=== PATIENT | female | born 1935 | race Hispanic/Latino ===

== ENCOUNTER → 2017-07-02 | Outpatient (CLI) | payer OTHER ==
[~2017-07-02] MED LIST: AMLO10TA2 PO; CITA40TA6 PO; METO25TA6 PO; PRAV40TA3 PO; RAMI5CAP21 PO; RANI150T7 PO; RIVA20TA PO; TAMO20TA4 PO
== END | disposition home or self-care (01) ==
LOC: SHCH 16:10
PROVIDERS: ATTEND Internal Medicine Cardiovascular Disease
DX: I10 Essential (primary) hypertension (principal); R09.89 Other specified symptoms and signs involving the circulatory and respiratory systems
CPT/HCPCS: 93880

== ENCOUNTER 2018-04-14 09:27 | Inpatient (IN) | payer OTHER ==
[~2018-04-14] VITALS: Ht 157.5 cm; Wt 71.9 kg
[~2018-04-14 09:27] MED LIST changes: -AMLO10TA2 PO; +AMLO10TA6 PO; -RAMI5CAP21 PO; +RAMI5CAP66 PO
[2018-04-14] MEDS ORDERED: IPRATROPIUM/ALBUTEROL SULFATE 3 ML SOLUTION IH ONE (09:45)
[2018-04-14 10:03] LABS: CREATININE 1.5 mg/dL (0.5-1.5); POTASSIUM 5.1 mmol/L (3.5-5.1)
[2018-04-14 10:10] LABS: ALBUMIN 3.6 g/dL (3.5-5.0); BILIRUBIN,TOTAL 0.6 mg/dL (0.2-1.0); TOTAL PROTEIN, SERUM 7.3 g/dL (6.0-8.3)
[2018-04-14 10:28] LABS: BASOPHILS % (AUTO) 0.3 % (0.0-5.0); HEMATOCRIT 36.7 % (36-48); LYMPHOCYTES % (AUTO) 24.4 % (21.0-51.0); MEAN CORPUSCULAR HGB CONC 32.3 g/dL (32.0-36.0); MONOCYTES % (AUTO) 4.6 % (3.0-13.0); NEUTROPHILS % (AUTO) 68.7 % (40.0-77.0); PLATELET COUNT (AUTO) 149 K/uL (130-400); RED BLOOD CELL COUNT(AUTO) 3.95 MIL/uL (4.00-5.50); RED CELL DISTRIBUTION WIDTH 15.2 % (11.0-15.5); WHITE BLOOD COUNT (AUTO) 10.3 K/uL (4.8-10.8)
[2018-04-14 10:59] LABS: B-TYPE NATRIURETIC PEPTIDE 502 pg/mL (0-100)
[2018-04-14] MEDS ORDERED: AZITHROMYCIN 250 MG TABLET PO ONE (13:14)
[2018-04-14] MEDS ORDERED: FUROSEMIDE 10 MG/ML 2ML VIAL ONE (13:14)
[2018-04-14] MEDS ORDERED: LEVOFLOXACIN 500 MG TABLET ONE (13:15)
[2018-04-14 13:57] LABS: BILIRUBIN,URINE Negative (NEGATIVE); COLOR,URINE Yellow (YELLOW); GLUCOSE, URINE (UA) Negative (NEGATIVE); KETONES,URINE Negative (NEGATIVE); LEUKOCYTE ESTERASE ,URINE Small (NEGATIVE); NITRATE,URINE Negative (NEGATIVE); OCCULT BLOOD,URINE Negative (NEGATIVE); PROTEIN,URINE Trace (NEGATIVE); UROBILINOGEN,URINE 0.2 mg/dL (0.2-1.0)
[2018-04-14 14:09] LABS: APPEARANCE,URINE CLEAR (CLEAR)
[2018-04-14] MEDS ORDERED: SODIUM CHLORIDE 0.9% 1000ML 1,000 ML IV SCH (14:17)
[2018-04-14 14:28] LABS: AMORPHOUS SEDIMENT,UR Rare /LPF (None Seen); BACTERIA,URINE Few /HPF (None Seen); COARSE GRANULAR CASTS,URINE 0-2 /LPF (None Seen); RBC,URINE 0-1 /HPF (0-1); SQUAMOUS EPITHELIAL CELL,UR Few /HPF (0-2)
[2018-04-14] MEDS ORDERED: ACETAMINOPHEN 325 MG TAB PO PRN (14:30)
[2018-04-14] MEDS ORDERED: MORPHINE SULFATE 2 MG/ML 1ML SYG IV PRN (14:30)
[2018-04-14] MEDS ORDERED: METOPROLOL TARTRATE 1 MG/ML 5ML VIAL IV PRN (14:30)
[2018-04-14] MEDS: FUROSEMIDE 10 MG/ML 2ML VIAL IV SCH ×2 (14:45→17:48)
[2018-04-14] MEDS ORDERED: IPRATROPIUM/ALBUTEROL SULFATE 3 ML SOLUTION IH PRN (14:45)
[2018-04-14] MEDS ORDERED: DEXTROSE 50%-WATER 50 ML DISP.SYRIN IV PRN (15:15)
[2018-04-14] MEDS ORDERED: GLUCAGON 1MG KIT 1 MG ML IM PRN (15:15)
[2018-04-14 16:00] VITALS: BP 137/77
[2018-04-14] MEDS ORDERED: RIVA20TA PO (16:23)
[2018-04-14] MEDS ORDERED: GLIP5TAB11 PO (16:23)
[2018-04-14] MEDS ORDERED: ALLO100T PO (16:23)
[2018-04-14] MEDS ORDERED: LEVO25TA54 PO (16:23)
[2018-04-14] MEDS: INSULIN HUMULIN R 100 UNIT/ML 3ML SQ SCH ×2 (16:30→21:00)
[2018-04-14] MEDS: PROPAFENONE HCL 150 MG TABLET PO SCH (17:46)
[2018-04-14] MEDS: METOPROLOL TARTRATE 1 MG/ML 5ML VIAL IV SCH (17:50)
[2018-04-14 19:13] VITALS: BP 138/83
[2018-04-14] MEDS: ATORVASTATIN CALCIUM 10 MG TABLET PO SCH (20:28)
[2018-04-14] MEDS: METOPROLOL TARTRATE 50 MG TAB PO SCH (20:28)
[2018-04-14] MEDS ORDERED: FAMOTIDINE 20MG TAB 20 MG TAB PO SCH (21:00)
[2018-04-14] MEDS ORDERED: METOPROLOL TARTRATE 25 MG TAB PO SCH ×2 (21:00)
[2018-04-14 23:13] VITALS: BP 119/67
[2018-04-15] VITALS (11 sets, daily range): BP systolic 97–144; BP diastolic 42–79
[2018-04-15] MEDS: FUROSEMIDE 10 MG/ML 2ML VIAL IV SCH ×2 (01:21→05:21)
[2018-04-15] MEDS: PROPAFENONE HCL 150 MG TABLET PO SCH ×3 (01:21→21:41)
[2018-04-15 04:24] LABS: MEAN CORPUSCULAR HEMOGLOBIN 31.2 pg (27.0-33.0); MEAN CORPUSCULAR HGB CONC 33.6 g/dL (32.0-36.0); MEAN CORPUSCULAR VOLUME 92.7 fL (79-99); PLATELET COUNT (AUTO) 142 K/uL (130-400); RED BLOOD CELL COUNT(AUTO) 3.56 MIL/uL (4.00-5.50); RED CELL DISTRIBUTION WIDTH 15.1 % (11.0-15.5); WHITE BLOOD COUNT (AUTO) 9.6 K/uL (4.8-10.8)
[2018-04-15 04:33] LABS: BILIRUBIN,TOTAL 0.5 mg/dL (0.2-1.0); CREATININE 1.9 mg/dL (0.5-1.5); MAGNESIUM 1.8 mg/dL (1.80-2.40); POTASSIUM 4.1 mmol/L (3.5-5.1); TOTAL PROTEIN, SERUM 6.3 g/dL (6.0-8.3)
[2018-04-15 04:43] LABS: B-TYPE NATRIURETIC PEPTIDE 469 pg/mL (0-100)
[2018-04-15] MEDS ORDERED: MIDAZOLAM HCL 1 MG/ML 2ML VIAL IVP ONE (07:00)
[2018-04-15] MEDS ORDERED: FENTANYL CITRATE PF 50 MCG/1 ML 2ML VIAL IVP ONE (07:00)
[2018-04-15] MEDS: GLIPIZIDE 5 MG TABLET PO SCH (07:30)
[2018-04-15] MEDS ORDERED: LEVOTHYROXINE 25 MCG TABLET PO SCH (07:30)
[2018-04-15] MEDS: INSULIN HUMULIN R 100 UNIT/ML 3ML SQ SCH ×4 (07:30→21:00)
[2018-04-15] MEDS ORDERED: SODIUM CHLORIDE 0.9% 1000ML 1,000 ML IV ONE (07:31)
[2018-04-15] MEDS ORDERED: LEVOFLOXACIN 500 MG/D5W 100 ML 100 ML IV SCH ×2 (08:15→08:45)
[2018-04-15] MEDS ORDERED: AZITHROMYCIN 500MG+NS 250ML 250 ML IV SCH (08:15)
[2018-04-15] MEDS ORDERED: ENOXAPARIN SODIUM 30 MG/0.3 ML SQ SCH (09:00)
[2018-04-15] MEDS ORDERED: RIVAROXABAN 20 MG TABLET PO SCH (09:00)
[2018-04-15] MEDS ORDERED: LISINOPRIL 10 MG TABLET PO SCH (09:00)
[2018-04-15] MEDS: METOPROLOL TARTRATE 50 MG TAB PO SCH ×2 (12:39→21:40)
[2018-04-15] MEDS: FAMOTIDINE 20MG TAB 20 MG TAB PO SCH (12:39)
[2018-04-15] MEDS: ALLOPURINOL 100 MG TABLET PO SCH (12:39)
[2018-04-15] MEDS: TAMOXIFEN CITRATE 10 MG TABLET PO SCH (12:40)
[2018-04-15] MEDS: METOPROLOL TARTRATE 1 MG/ML 5ML VIAL IV SCH (16:04)
[2018-04-15] MEDS: DOXYCYCLINE HYCLATE 100 MG TABLET PO SCH (21:40)
[2018-04-15] MEDS: ATORVASTATIN CALCIUM 10 MG TABLET PO SCH (21:40)
[2018-04-16 03:43] VITALS: BP 124/71
[2018-04-16 04:18] LABS: BASOPHILS % (AUTO) 0.3 % (0.0-5.0); HEMATOCRIT 32.5 % (36-48); LYMPHOCYTES % (AUTO) 22.7 % (21.0-51.0); MEAN CORPUSCULAR HEMOGLOBIN 30.6 pg (27.0-33.0); MEAN CORPUSCULAR HGB CONC 32.9 g/dL (32.0-36.0); MEAN CORPUSCULAR VOLUME 92.9 fL (79-99); MONOCYTES % (AUTO) 8.1 % (3.0-13.0); NEUTROPHILS % (AUTO) 66.9 % (40.0-77.0); NUCLEATED RED BLOOD CELLS 0.1 % (0.0-0.19); PLATELET COUNT (AUTO) 122 K/uL (130-400); RED CELL DISTRIBUTION WIDTH 15.2 % (11.0-15.5); WHITE BLOOD COUNT (AUTO) 9.2 K/uL (4.8-10.8)
[2018-04-16 04:18] LABS: ABG BASE EXCESS 0.6 mmol/L (-2.0-3.0); ABG HCO3 26.5 mmol/L (21.0-28.0); ABG OXYGEN SATURATION 96.2 % (95.0-99.0); ABG PCO2 47 mmHg (32-45)
[2018-04-16 04:47] LABS: B-TYPE NATRIURETIC PEPTIDE 137 pg/mL (0-100)
[2018-04-16 04:48] LABS: CREATININE 2.7 mg/dL (0.5-1.5); MAGNESIUM 1.9 mg/dL (1.80-2.40); POTASSIUM 4.2 mmol/L (3.5-5.1); THYROID STIMULATING HORMONE 2.19 uIU/mL (0.36-3.74)
[2018-04-16] MEDS: LEVOTHYROXINE 25 MCG TABLET PO SCH (05:55)
[2018-04-16] MEDS: PROPAFENONE HCL 150 MG TABLET PO SCH ×3 (05:56→21:34)
[2018-04-16] MEDS: INSULIN HUMULIN R 100 UNIT/ML 3ML SQ SCH ×4 (06:44→21:00)
[2018-04-16 07:09] VITALS: BP 121/57
[2018-04-16] MEDS: GLIPIZIDE 5 MG TABLET PO SCH (07:12)
[2018-04-16] MEDS: METOPROLOL TARTRATE 50 MG TAB PO SCH ×3 (08:26→21:33)
[2018-04-16] MEDS ORDERED: SODIUM CHLORIDE 0.9% 1000ML 1,000 ML IV SCH (08:30)
[2018-04-16] MEDS ORDERED: RIVAROXABAN 15 MG TABLET PO SCH (09:00)
[2018-04-16] MEDS: TAMOXIFEN CITRATE 10 MG TABLET PO SCH (09:54)
[2018-04-16] MEDS: DOXYCYCLINE HYCLATE 100 MG TABLET PO SCH ×2 (09:54→21:33)
[2018-04-16] MEDS: FAMOTIDINE 20MG TAB 20 MG TAB PO SCH (09:54)
[2018-04-16] MEDS: ALLOPURINOL 100 MG TABLET PO SCH (09:54)
[2018-04-16 11:05] VITALS: BP 127/59
[2018-04-16 16:04] VITALS: BP 140/73
[2018-04-16 19:28] VITALS: BP 132/66
[2018-04-16] MEDS: ATORVASTATIN CALCIUM 10 MG TABLET PO SCH (21:33)
[2018-04-16] MEDS: BENZONATATE 100 MG CAPSULE PO SCH (21:38)
[2018-04-16 23:17] VITALS: BP 120/65
[2018-04-17] VITALS (7 sets, daily range): BP systolic 90–171; BP diastolic 43–76
[2018-04-17 04:12] LABS: CREATININE 2.3 mg/dL (0.5-1.5); POTASSIUM 4.1 mmol/L (3.5-5.1)
[2018-04-17] MEDS: PROPAFENONE HCL 150 MG TABLET PO SCH ×3 (04:25→20:26)
[2018-04-17] MEDS: BENZONATATE 100 MG CAPSULE PO SCH ×3 (04:25→20:26)
[2018-04-17] MEDS: LEVOTHYROXINE 25 MCG TABLET PO SCH (06:38)
[2018-04-17] MEDS: GLIPIZIDE 5 MG TABLET PO SCH (06:39)
[2018-04-17] MEDS: INSULIN HUMULIN R 100 UNIT/ML 3ML SQ SCH ×4 (07:13→20:26)
[2018-04-17] MEDS ORDERED: LEVOFLOXACIN 250 MG/D5W 50ML 50 ML IVPB SCH (09:00)
[2018-04-17] MEDS: FUROSEMIDE 10 MG/ML 2ML VIAL IV SCH (09:27)
[2018-04-17] MEDS: TAMOXIFEN CITRATE 10 MG TABLET PO SCH (09:30)
[2018-04-17] MEDS: METOPROLOL TARTRATE 50 MG TAB PO SCH ×2 (09:31→20:26)
[2018-04-17] MEDS: AMLODIPINE BESYLATE 5 MG TAB PO SCH (09:31)
[2018-04-17] MEDS: DOXYCYCLINE HYCLATE 100 MG TABLET PO SCH ×2 (09:31→20:25)
[2018-04-17] MEDS: FAMOTIDINE 20MG TAB 20 MG TAB PO SCH (09:32)
[2018-04-17] MEDS: ALLOPURINOL 100 MG TABLET PO SCH (09:32)
[2018-04-17] MEDS: RIVAROXABAN 15 MG TABLET PO SCH (09:35)
[2018-04-17] MEDS: ATORVASTATIN CALCIUM 10 MG TABLET PO SCH (20:26)
[2018-04-18] MEDS: BENZONATATE 100 MG CAPSULE PO SCH ×2 (03:26→11:30)
[2018-04-18] MEDS: PROPAFENONE HCL 150 MG TABLET PO SCH (03:26)
[2018-04-18 03:36] LABS: MEAN CORPUSCULAR HEMOGLOBIN 29.9 pg (27.0-33.0); MEAN CORPUSCULAR HGB CONC 32.5 g/dL (32.0-36.0); MEAN CORPUSCULAR VOLUME 92.1 fL (79-99); NUCLEATED RED BLOOD CELLS 0.1 % (0.0-0.19); PLATELET COUNT (AUTO) 138 K/uL (130-400); RED BLOOD CELL COUNT(AUTO) 3.91 MIL/uL (4.00-5.50); RED CELL DISTRIBUTION WIDTH 15.4 % (11.0-15.5)
[2018-04-18 03:49] LABS: CREATININE 1.8 mg/dL (0.5-1.5); MAGNESIUM 1.9 mg/dL (1.80-2.40)
[2018-04-18 03:56] VITALS: BP 129/91
[2018-04-18] MEDS: LEVOTHYROXINE 25 MCG TABLET PO SCH (05:33)
[2018-04-18] MEDS: INSULIN HUMULIN R 100 UNIT/ML 3ML SQ SCH ×3 (05:33→16:30)
[2018-04-18 07:43] VITALS: BP 139/81
[2018-04-18] MEDS ORDERED: PROP325C5 PO (08:14)
[2018-04-18] MEDS ORDERED: RIVA15TA PO (08:14)
[2018-04-18] MEDS ORDERED: METO50TA18 PO (08:14)
[2018-04-18] MEDS ORDERED: FURO20TA4 PO (08:14)
[2018-04-18] MEDS ORDERED: FUROSEMIDE 20 MG TABLET PO SCH (09:00)
[2018-04-18] MEDS: FAMOTIDINE 20MG TAB 20 MG TAB PO SCH (09:54)
[2018-04-18] MEDS: DOXYCYCLINE HYCLATE 100 MG TABLET PO SCH (09:54)
[2018-04-18] MEDS: FUROSEMIDE 10 MG/ML 2ML VIAL IV SCH (09:54)
[2018-04-18] MEDS: RIVAROXABAN 15 MG TABLET PO SCH (09:54)
[2018-04-18] MEDS: METOPROLOL TARTRATE 50 MG TAB PO SCH (09:54)
[2018-04-18] MEDS: AMLODIPINE BESYLATE 5 MG TAB PO SCH (09:54)
[2018-04-18] MEDS: ALLOPURINOL 100 MG TABLET PO SCH (09:54)
[2018-04-18] MEDS: TAMOXIFEN CITRATE 10 MG TABLET PO SCH (09:56)
[2018-04-18 11:28] VITALS: BP 138/75
[2018-04-18] MEDS ORDERED: PROPAFENONE HCL 150 MG TABLET PO SCH (13:00)
[2018-04-18 16:11] VITALS: BP 126/67
== END 2018-04-18 18:00 | disposition home or self-care (01) | DRG 291 ==
LOC: EDH 09:27 → 2AH 14:17 → OBSVTOIN 14:17
PROVIDERS: ADMIT Hospitalist; ATTEND Hospitalist
PROC: 5A2204Z Restoration of Cardiac Rhythm, Single (ICD-10-PCS; principal; 2018-04-15)
DX: I13.0 Hypertensive heart and chronic kidney disease with heart failure and stage 1 through stage 4 chronic kidney disease, or unspecified chronic kidney disease (principal); I50.33 Acute on chronic diastolic (congestive) heart failure; N17.9 Acute kidney failure, unspecified; E46 Unspecified protein-calorie malnutrition; I48.0 Paroxysmal atrial fibrillation; E11.22 Type 2 diabetes mellitus with diabetic chronic kidney disease; F41.9 Anxiety disorder, unspecified; E03.9 Hypothyroidism, unspecified; E66.9 Obesity, unspecified; E78.5 Hyperlipidemia, unspecified; E86.9 Volume depletion, unspecified; J84.10 Pulmonary fibrosis, unspecified; K29.70 Gastritis, unspecified, without bleeding; N18.3 Chronic kidney disease, stage 3 (moderate); Z68.29 Body mass index [BMI] 29.0-29.9, adult; Z79.01 Long term (current) use of anticoagulants; Z79.810 Long term (current) use of selective estrogen receptor modulators (SERMs); Z85.3 Personal history of malignant neoplasm of breast; Z87.891 Personal history of nicotine dependence; Z92.21 Personal history of antineoplastic chemotherapy; Z92.3 Personal history of irradiation
CPT/HCPCS: 36415; 36600; 71045; 71046; 71250; 76770; 80048; 80053; 81001; 82550; 82803; 82948; 83735; 83880; 84100; 84443; 84484; 85025; 85027; 87040; 87804; 92960; 93005; 93306; 94640; 94664; 94760; G0378; J1940; J2250; J3010; J3490; J7030

== ENCOUNTER 2018-06-11 07:02 | Day surgery (SDC) | payer OTHER ==
[2018-06-10 14:40] VITALS: BP 114/58
[2018-06-10 15:00] LABS: BASOPHILS % (AUTO) 0.6 % (0.0-5.0); EOSINOPHILS % (AUTO) 2.7 % (0.0-8.0); HEMATOCRIT 33.8 % (36-48); LYMPHOCYTES % (AUTO) 15.8 % (21.0-51.0); MEAN CORPUSCULAR HEMOGLOBIN 29.3 pg (27.0-33.0); MEAN CORPUSCULAR HGB CONC 32.3 g/dL (32.0-36.0); MEAN CORPUSCULAR VOLUME 90.7 fL (79-99); NEUTROPHILS % (AUTO) 73.9 % (40.0-77.0); PLATELET COUNT (AUTO) 167 K/uL (130-400); RED BLOOD CELL COUNT(AUTO) 3.73 MIL/uL (4.00-5.50); RED CELL DISTRIBUTION WIDTH 15.9 % (11.0-15.5); WHITE BLOOD COUNT (AUTO) 8.8 K/uL (4.8-10.8)
[2018-06-10 15:13] LABS: CREATININE 1.7 mg/dL (0.5-1.5); POTASSIUM 4.6 mmol/L (3.5-5.1)
[2018-06-10 15:18] LABS: INR 1.12 (0.85-1.15); PARTIAL THROMBOPLASTIN TIME 28.3 SEC (26.3-35.5); PROTHROMBIN TIME 11.7 SEC (9.6-11.6)
--- NOTE | 2018-06-10 16:14 | NUR ---
LABS SPOKE TO DR. LOAN WILCOX'S ASST. IN REGARDS TO ABNORMAL BUN/CREA. PER DR. CATES, NO NEW ORDERS. PROCEED WITH PLANNED PROCEDURE.
[2018-06-11] VITALS (18 sets, daily range): BP systolic 70–167; BP diastolic 33–91
[~2018-06-11] VITALS: Ht 152.4 cm; Wt 76.9 kg
[~2018-06-11 07:02] MED LIST changes: +ALLO100T PO; -AMLO10TA6 PO; +FURO40TA5 PO; +GLIP5TAB11 PO; +LEVO25TA54 PO; +POTA-79 PO; +PROP150T28 PO; -RAMI5CAP66 PO; +RIVA15TA PO; -RIVA20TA PO
[2018-06-11] MEDS ORDERED: PROPOFOL 10 MG/ML 20ML VIAL IV ONE (07:32)
[2018-06-11] MEDS ORDERED: PHENYLEPHRINE HCL 10 MG/ML 1ML VIAL IV ONE (07:33)
[2018-06-11] MEDS ORDERED: GLYCOPYRROLATE 1 MG/5 ML SYRINGE ONE (07:37)
[2018-06-11] MEDS ORDERED: SUCCINYLCHOLINE CHLORIDE 20 MG/ML 10 ML VIAL ONE (07:54)
[2018-06-11] MEDS ORDERED: SODIUM CHLORIDE 0.9% 1000ML 1,000 ML IV SCH (08:00)
[2018-06-11] MEDS ORDERED: METO25TA6 PO (09:41)
--- NOTE | 2018-06-11 10:36 | NUR ---
PT TOLERATED PROCEDURE WELL, NO C/O OF CHEST PAIN NO DISTRESS. PT ABLE TO TOLERATE FLUIDS AT BEDSIDE SITTING UP. DAUGHTER ASSISTED PT TO GET DRESSED AFTER SITTING UP. DISCHARGE INSTRUCTIONS GIVEN TO PT AND IN [place] AND [place], BOTH VERBALIZED UNDERSTANDING. INSTRUCTION PT TO TAKE METOPROLOL MEDICATION OF 50MG (2 TABS) TWICE DAILY FOR TOTAL OF 100MG DAILY PER DR. CATES'S INSTRUCTION. PT STATED SHE UNDERSTOOD INSTRUCTION ON MEDICATION DOSAGE. PT PLACED IN WHEELCHAIR AND DRIVEN HOME BY FAMILY.
--- NOTE | 2018-06-11 10:51 | NUR ---
CARDIOVERSION: BASELINE TIME: 907 IN ROOM TIME: 814 START TIME: 915 SEDATION PUSH/ MEDICATION -DR. Brigido MIRANDA PT STABLE, VITALS STABLE SHOCK X1 DELIVERED AT TIME :917 200 JOULES PT CONVERTED, PT STABLE VITALS STABLE RECOVERY TIME : 919 PT RECOVERING, RESTING NO SIGNS OF DISTRESS, STABLE CONTINUE TO MONITOR PT. DR. CATES OUT OF ROOM TIME: 934 DR. Brigido MIRANDA OUT OF ROOM TIME: 934
== END 2018-06-11 10:36 | disposition home or self-care (01) ==
LOC: DAH 07:02
PROVIDERS: ATTEND Internal Medicine Cardiovascular Disease
DX: I48.1 Persistent atrial fibrillation (principal); Z79.01 Long term (current) use of anticoagulants; I10 Essential (primary) hypertension; E11.9 Type 2 diabetes mellitus without complications; E03.9 Hypothyroidism, unspecified; Z85.3 Personal history of malignant neoplasm of breast; Z98.890 Other specified postprocedural states; I25.10 Atherosclerotic heart disease of native coronary artery without angina pectoris; Z68.32 Body mass index [BMI] 32.0-32.9, adult
CPT/HCPCS: 36415; 80048; 82948; 85025; 85610; 85730; 92960; 93005; J0330; J2370; J2704; J3490; J7030

== ENCOUNTER → 2018-07-29 | Outpatient (CLI) | payer OTHER ==
[~2018-07-29] VITALS: Ht 147.3 cm; Wt 73.8 kg
[~2018-07-29] MED LIST changes: +DRON400T2 PO; +METO100T14 PO; -PROP150T28 PO
[2018-07-29 15:30] VITALS: BP 119/52
[2018-07-29 15:34] LABS: BASOPHILS % (AUTO) 0.3 % (0.0-5.0); EOSINOPHILS % (AUTO) 0.3 % (0.0-8.0); MEAN CORPUSCULAR HGB CONC 32.8 g/dL (32.0-36.0); MEAN CORPUSCULAR VOLUME 85.4 fL (79-99); MONOCYTES % (AUTO) 6.1 % (3.0-13.0); NEUTROPHILS % (AUTO) 85.3 % (40.0-77.0); NUCLEATED RED BLOOD CELLS 0.1 % (0.0-0.19); PLATELET COUNT (AUTO) 167 K/uL (130-400); RED BLOOD CELL COUNT(AUTO) 4.33 MIL/uL (4.00-5.50); RED CELL DISTRIBUTION WIDTH 17.2 % (11.0-15.5); WHITE BLOOD COUNT (AUTO) 14.9 K/uL (4.8-10.8)
[2018-07-29 15:45] LABS: CREATININE 1.6 mg/dL (0.5-1.5); POTASSIUM 4.8 mmol/L (3.5-5.1)
[2018-07-29 15:48] LABS: INR 1.14 (0.85-1.15); PARTIAL THROMBOPLASTIN TIME 28.3 SEC (26.3-35.5); PROTHROMBIN TIME 11.9 SEC (9.6-11.6)
--- NOTE | 2018-07-29 16:08 | NUR ---
ADMINSTRATION OF MULTAQ PER PATIENT AND SPOUSE PATIENT WAS PLACED ON AN ANTIBIOTIC ON 07/23 FOR 4 DAYS BY HER PCP FOR STOMACH INFECTION AND WAS ADVISED NOT TO TAKE MULTAQ ALONG WITH IT AND NOT TO TAKE IT UNTIL SHE SAW DR. CATES. PATIENT HAS BEEN OFF MULTAQ SINCE. 07/23. SPOKE TO DR. LOAN WILCOX'S NURSE OF PATIENT NOT BEING ON MULTAQ. PER [facility]ENDEN PATIENT'S PROCEDURE WILL BE CANCELLED AND THEIR OFFICE WILL CALL PATIENT FOR FURTHER INSTRUCTIONS. PATIENT AND SPOUSE VERBALIZED UNDERSTANDING.
== END ==
LOC: DAH 10:00 → EDSTATUS 07-31 11:00
PROVIDERS: ATTEND Internal Medicine Cardiovascular Disease
DX: Z01.818 Encounter for other preprocedural examination (principal); I48.0 Paroxysmal atrial fibrillation; Z79.01 Long term (current) use of anticoagulants; I10 Essential (primary) hypertension; E11.9 Type 2 diabetes mellitus without complications; E03.9 Hypothyroidism, unspecified; Z85.3 Personal history of malignant neoplasm of breast; Z68.31 Body mass index [BMI] 31.0-31.9, adult
CPT/HCPCS: 36415; 80048; 85025; 85610; 85730

== ENCOUNTER 2018-08-06 07:37 | Inpatient (IN) | payer OTHER | END 2018-08-09 19:32 | disposition home or self-care (01) | LOC: EDH 07:37 → EDHIP 15:40 → 2DH 20:53 | PROC: 5A2204Z Restoration of Cardiac Rhythm, Single (ICD-10-PCS; principal; ~2018-08-06) | DX: I50.41 Acute combined systolic (congestive) and diastolic (congestive) heart failure (principal); J96.01 Acute respiratory failure with hypoxia; N18.4 Chronic kidney disease, stage 4 (severe); I13.0 Hypertensive heart and chronic kidney disease with heart failure and stage 1 through stage 4 chronic kidney disease, or unspecified chronic kidney disease; I48.0 Paroxysmal atrial fibrillation; E11.22 Type 2 diabetes mellitus with diabetic chronic kidney disease ==

== ENCOUNTER 2018-11-07 03:13 | Inpatient (IN) | payer OTHER ==
[~2018-11-07] VITALS: Ht 157.5 cm; Wt 72.3 kg
[~2018-11-07 03:13] MED LIST changes: +AMIO200T5 PO; -DRON400T2 PO; -FURO40TA5 PO; -METO100T14 PO; -METO25TA6 PO; -POTA-79 PO
[2018-11-07] MEDS ORDERED: ALBUTEROL SULFATE 0.083% 2.5 MG/3 ML INH IH ONE (03:27)
[2018-11-07 03:31] LABS: BASOPHILS % (AUTO) 0.5 % (0.0-5.0); EOSINOPHILS % (AUTO) 2.3 % (0.0-8.0); HEMATOCRIT 31.3 % (36-48); LYMPHOCYTES % (AUTO) 20.3 % (21.0-51.0); MEAN CORPUSCULAR HEMOGLOBIN 27.1 pg (27.0-33.0); MEAN CORPUSCULAR HGB CONC 32.1 g/dL (32.0-36.0); MEAN CORPUSCULAR VOLUME 84.3 fL (79-99); NEUTROPHILS % (AUTO) 71.9 % (40.0-77.0); PLATELET COUNT (AUTO) 135 K/uL (130-400); RED BLOOD CELL COUNT(AUTO) 3.71 MIL/uL (4.00-5.50); RED CELL DISTRIBUTION WIDTH 18.3 % (11.0-15.5); WHITE BLOOD COUNT (AUTO) 11.6 K/uL (4.8-10.8)
[2018-11-07 03:35] LABS: ABG HCO3 23.4 mmol/L (21.0-28.0); ABG OXYGEN SATURATION 94.3 % (95.0-99.0); ABG PCO2 42 mmHg (32-45)
[2018-11-07 03:41] LABS: CREATININE 1.7 mg/dL (0.5-1.5); POTASSIUM 4.1 mmol/L (3.5-5.1)
[2018-11-07 03:43] LABS: INR 1.36 (0.85-1.15); PARTIAL THROMBOPLASTIN TIME 30.5 SEC (26.3-35.5); PROTHROMBIN TIME 14.2 SEC (9.6-11.6)
[2018-11-07 03:45] LABS: ALBUMIN 3.2 g/dL (3.5-5.0); BILIRUBIN,TOTAL 0.3 mg/dL (0.2-1.0)
[2018-11-07 03:58] LABS: B-TYPE NATRIURETIC PEPTIDE 112 pg/mL (0-100)
[2018-11-07 04:35] LABS: APPEARANCE,URINE Clear (CLEAR); BILIRUBIN,URINE Negative (NEGATIVE); COLOR,URINE Yellow (YELLOW); GLUCOSE, URINE (UA) Negative (NEGATIVE); KETONES,URINE Negative (NEGATIVE); LEUKOCYTE ESTERASE ,URINE Trace (NEGATIVE); NITRATE,URINE Negative (NEGATIVE); OCCULT BLOOD,URINE Negative (NEGATIVE); PROTEIN,URINE Negative (NEGATIVE); UROBILINOGEN,URINE 0.2 mg/dL (0.2-1.0)
[2018-11-07 04:47] LABS: RBC,URINE 0-1 /HPF (0-1)
[2018-11-07 04:48] LABS: BACTERIA,URINE Many /HPF (None Seen); SQUAMOUS EPITHELIAL CELL,UR 0-2 /HPF (0-2)
[2018-11-07] MEDS ORDERED: HYDRALAZINE HCL 20 MG/ML VIAL IV PRN (05:00)
[2018-11-07] MEDS ORDERED: MORPHINE SULFATE 4 MG/1ML SYG IV PRN (05:00)
[2018-11-07] MEDS ORDERED: ACETAMINOPHEN 325 MG TAB PO PRN (05:00)
[2018-11-07] MEDS ORDERED: ONDANSETRON HCL 4 MG/2 ML VIAL IV PRN (05:00)
[2018-11-07] MEDS ORDERED: MORPHINE SULFATE 2 MG/ML 1ML SYG IV PRN (05:00)
[2018-11-07] MEDS: IPRATROPIUM/ALBUTEROL SULFATE 3 ML SOLUTION IH SCH ×4 (06:14→23:52)
[2018-11-07 07:57] VITALS: BP 128/63
[2018-11-07] MEDS ORDERED: FURO20TA6 PO (08:27)
[2018-11-07] MEDS ORDERED: DIPH50 PO (08:27)
[2018-11-07] MEDS ORDERED: METO50TA18 PO (08:27)
[2018-11-07] MEDS ORDERED: FUROSEMIDE 10 MG/ML 2ML VIAL IV SCH (09:00)
[2018-11-07 11:46] VITALS: BP 139/72
[2018-11-07] MEDS: ENOXAPARIN SODIUM 30 MG/0.3 ML SQ SCH ×2 (11:46→20:42)
[2018-11-07] MEDS: FAMOTIDINE/PF 20 MG/2 ML VIAL IV SCH (11:46)
[2018-11-07] MEDS: FUROSEMIDE 10 MG/ML 4ML VIAL IV SCH (12:21)
[2018-11-07 15:36] VITALS: BP 146/77
[2018-11-07 19:00] VITALS: BP 119/62
[2018-11-07] MEDS ORDERED: ATORVASTATIN CALCIUM 40 MG TABLET ONE (20:33)
[2018-11-07] MEDS ORDERED: GUAIFENESIN-CODEINE 5 ML SYRUP ONE (21:32)
[2018-11-07 23:00] VITALS: BP 126/65
[2018-11-08] MEDS: FUROSEMIDE 10 MG/ML 4ML VIAL IV SCH ×2 (00:13→12:38)
[2018-11-08 03:00] VITALS: BP 143/57
[2018-11-08 04:00] LABS: CREATININE 1.8 mg/dL (0.5-1.5); POTASSIUM 3.7 mmol/L (3.5-5.1)
[2018-11-08 07:00] VITALS: BP 160/72
[2018-11-08] MEDS: IPRATROPIUM/ALBUTEROL SULFATE 3 ML SOLUTION IH SCH ×3 (07:03→18:25)
[2018-11-08] MEDS: FAMOTIDINE/PF 20 MG/2 ML VIAL IV SCH (08:55)
[2018-11-08] MEDS: ENOXAPARIN SODIUM 30 MG/0.3 ML SQ SCH (08:56)
[2018-11-08] MEDS: GUAIFENESIN-CODEINE 5 ML SYRUP PO PRN ×2 (09:11→21:30)
[2018-11-08 12:05] VITALS: BP 136/69
[2018-11-08] MEDS ORDERED: LIDOCAINE HCL-MPF 1% 2ML VIAL IVP PRN (12:30)
[2018-11-08] MEDS ORDERED: POTASSIUM CHLORIDE 20MEQ/100ML 100 ML IV PRN (12:30)
[2018-11-08] MEDS ORDERED: POTASSIUM CHLORIDE 10% ELIXIR 20 MEQ/15 ML UDCUP PO PRN (12:30)
[2018-11-08] MEDS: POTASSIUM CHLORIDE 20 MEQ ERTAB PO PRN ×2 (13:40→17:17)
[2018-11-08] MEDS ORDERED: DILTIAZEM HCL 125 MG/25 ML 125 MG in SODIUM CHLORIDE 0.9% 100 ML IV PRN (15:00)
[2018-11-08] MEDS ORDERED: DILTIAZEM HCL 5 MG/ML 5 ML VIAL IVP PRN (15:00)
[2018-11-08] MEDS ORDERED: DILTIAZEM 125MG/125ML NS IV PRN (15:15)
[2018-11-08] MEDS ORDERED: ATORVASTATIN CALCIUM 20 MG TABLET PO SCH (16:15)
[2018-11-08 16:20] VITALS: BP 126/62
[2018-11-08] MEDS ORDERED: DILTIAZEM HCL 5 MG/ML 5 ML VIAL IVP SCH (16:23)
[2018-11-08 20:10] VITALS: BP 120/54
[2018-11-08] MEDS: AMIODARONE HCL 200 MG TABLET PO SCH (21:16)
[2018-11-08] MEDS: METOPROLOL TARTRATE 50 MG TAB PO SCH (21:16)
[2018-11-08] MEDS: RIVAROXABAN 15 MG TABLET PO SCH (21:16)
[2018-11-09] VITALS (7 sets, daily range): BP systolic 103–119; BP diastolic 44–71
[2018-11-09] MEDS: IPRATROPIUM/ALBUTEROL SULFATE 3 ML SOLUTION IH SCH ×5 (00:19→23:06)
[2018-11-09] MEDS: FUROSEMIDE 10 MG/ML 4ML VIAL IV SCH ×2 (00:43→12:45)
[2018-11-09 04:04] LABS: BASOPHILS % (AUTO) 0.3 % (0.0-5.0); EOSINOPHILS % (AUTO) 1.9 % (0.0-8.0); HEMATOCRIT 29.7 % (36-48); LYMPHOCYTES % (AUTO) 10.3 % (21.0-51.0); MEAN CORPUSCULAR HGB CONC 32.1 g/dL (32.0-36.0); MEAN CORPUSCULAR VOLUME 84.2 fL (79-99); MONOCYTES % (AUTO) 7.1 % (3.0-13.0); NEUTROPHILS % (AUTO) 80.4 % (40.0-77.0); PLATELET COUNT (AUTO) 140 K/uL (130-400); RED BLOOD CELL COUNT(AUTO) 3.53 MIL/uL (4.00-5.50); RED CELL DISTRIBUTION WIDTH 18.5 % (11.0-15.5); WHITE BLOOD COUNT (AUTO) 11.1 K/uL (4.8-10.8)
[2018-11-09 04:17] LABS: CREATININE 1.9 mg/dL (0.5-1.5); MAGNESIUM 1.9 mg/dL (1.80-2.40); PHOSPHORUS 4.2 mg/dL (2.5-4.9); POTASSIUM 4.2 mmol/L (3.5-5.1)
[2018-11-09 04:26] LABS: B-TYPE NATRIURETIC PEPTIDE 586 pg/mL (0-100)
[2018-11-09] MEDS: LEVOTHYROXINE 25 MCG TABLET PO SCH (06:18)
[2018-11-09] MEDS ORDERED: NON-FORMULARY MEDICATION 1 EACH (Ranitidine HCl 150 MG) PO SCH (09:00)
[2018-11-09] MEDS: AMIODARONE HCL 200 MG TABLET PO SCH ×2 (09:15→20:16)
[2018-11-09] MEDS: METOPROLOL TARTRATE 50 MG TAB PO SCH ×2 (09:15→20:16)
[2018-11-09] MEDS: RIVAROXABAN 15 MG TABLET PO SCH (20:16)
[2018-11-09] MEDS: FAMOTIDINE 20MG TAB 20 MG TAB PO SCH (20:16)
[2018-11-09] MEDS: ACETAMINOPHEN 325 MG TAB PO PRN (20:17)
[2018-11-10 03:23] VITALS: BP 118/61
[2018-11-10] MEDS: ACETAMINOPHEN 325 MG TAB PO PRN ×2 (04:18→11:57)
[2018-11-10] MEDS: LEVOTHYROXINE 25 MCG TABLET PO SCH (05:37)
[2018-11-10] MEDS: IPRATROPIUM/ALBUTEROL SULFATE 3 ML SOLUTION IH SCH ×4 (07:18→23:42)
[2018-11-10 07:49] VITALS: BP 103/61
[2018-11-10] MEDS: AMIODARONE HCL 200 MG TABLET PO SCH ×2 (09:10→21:02)
[2018-11-10] MEDS: METOPROLOL TARTRATE 50 MG TAB PO SCH ×2 (09:10→21:02)
[2018-11-10] MEDS: FUROSEMIDE 10 MG/ML 4ML VIAL IV SCH (09:11)
[2018-11-10 12:15] VITALS: BP 113/64
[2018-11-10 15:21] VITALS: BP 111/65
[2018-11-10 19:56] VITALS: BP 145/6
[2018-11-10] MEDS: RIVAROXABAN 15 MG TABLET PO SCH (21:02)
[2018-11-10] MEDS: FAMOTIDINE 20MG TAB 20 MG TAB PO SCH (21:02)
[2018-11-10 23:33] VITALS: BP 129/66
[2018-11-11 03:45] VITALS: BP 118/52
[2018-11-11] MEDS: LEVOTHYROXINE 25 MCG TABLET PO SCH (06:15)
[2018-11-11] MEDS: IPRATROPIUM/ALBUTEROL SULFATE 3 ML SOLUTION IH SCH ×3 (06:34→19:19)
[2018-11-11 07:33] VITALS: BP 112/63
[2018-11-11] MEDS: METOPROLOL TARTRATE 50 MG TAB PO SCH ×2 (07:56→21:42)
[2018-11-11] MEDS: FUROSEMIDE 10 MG/ML 4ML VIAL IV SCH (07:56)
[2018-11-11] MEDS: AMIODARONE HCL 200 MG TABLET PO SCH ×2 (07:56→21:42)
[2018-11-11 11:33] VITALS: BP 107/59
[2018-11-11] MEDS ORDERED: ACETAMINOPHEN-CODEINE 300/30MG TAB PO PRN (11:51)
[2018-11-11 15:32] VITALS: BP 104/53
[2018-11-11 19:56] VITALS: BP 117/50
[2018-11-11] MEDS: FAMOTIDINE 20MG TAB 20 MG TAB PO SCH (21:42)
[2018-11-11] MEDS: RIVAROXABAN 15 MG TABLET PO SCH (21:42)
[2018-11-11 23:50] VITALS: BP 127/57
[2018-11-12] MEDS: IPRATROPIUM/ALBUTEROL SULFATE 3 ML SOLUTION IH SCH ×3 (00:09→11:12)
[2018-11-12 03:37] VITALS: BP 118/53
[2018-11-12 04:03] LABS: BASOPHILS % (AUTO) 0.5 % (0.0-5.0); EOSINOPHILS % (AUTO) 1.7 % (0.0-8.0); HEMATOCRIT 30.6 % (36-48); LYMPHOCYTES % (AUTO) 13.6 % (21.0-51.0); MEAN CORPUSCULAR HEMOGLOBIN 27.6 pg (27.0-33.0); MEAN CORPUSCULAR HGB CONC 32.9 g/dL (32.0-36.0); MEAN CORPUSCULAR VOLUME 83.8 fL (79-99); MONOCYTES % (AUTO) 8.2 % (3.0-13.0); PLATELET COUNT (AUTO) 169 K/uL (130-400); RED BLOOD CELL COUNT(AUTO) 3.65 MIL/uL (4.00-5.50); WHITE BLOOD COUNT (AUTO) 10.2 K/uL (4.8-10.8)
[2018-11-12 04:25] LABS: ALBUMIN 2.6 g/dL (3.5-5.0); BILIRUBIN,TOTAL 0.4 mg/dL (0.2-1.0); CREATININE 1.7 mg/dL (0.5-1.5); POTASSIUM 4.1 mmol/L (3.5-5.1); TOTAL PROTEIN, SERUM 6.8 g/dL (6.0-8.3)
[2018-11-12] MEDS: LEVOTHYROXINE 25 MCG TABLET PO SCH (06:34)
[2018-11-12 07:28] VITALS: BP 104/75
[2018-11-12] MEDS: AMIODARONE HCL 200 MG TABLET PO SCH (08:37)
[2018-11-12] MEDS: FUROSEMIDE 10 MG/ML 4ML VIAL IV SCH (08:37)
[2018-11-12] MEDS: METOPROLOL TARTRATE 50 MG TAB PO SCH (08:37)
[2018-11-12 11:16] VITALS: BP 115/50
[2018-11-12 15:02] VITALS: BP 129/59
== END 2018-11-12 17:40 | disposition home or self-care (01) | DRG 291 ==
LOC: EDH 03:13 → EDHIP 04:30 → 2DH 07:51
PROVIDERS: ADMIT Internal Medicine; ATTEND Internal Medicine
PROC: 5A09357 Assistance with Respiratory Ventilation, Less than 24 Consecutive Hours, Continuous Positive Airway Pressure (ICD-10-PCS; principal; 2018-11-07)
DX: I11.0 Hypertensive heart disease with heart failure (principal); I50.31 Acute diastolic (congestive) heart failure; J96.01 Acute respiratory failure with hypoxia; D68.59 Other primary thrombophilia; I48.0 Paroxysmal atrial fibrillation; Z79.01 Long term (current) use of anticoagulants; E03.9 Hypothyroidism, unspecified; E11.9 Type 2 diabetes mellitus without complications; E66.9 Obesity, unspecified; Z68.29 Body mass index [BMI] 29.0-29.9, adult; G47.33 Obstructive sleep apnea (adult) (pediatric); I25.10 Atherosclerotic heart disease of native coronary artery without angina pectoris; M10.9 Gout, unspecified; N28.9 Disorder of kidney and ureter, unspecified; Z74.01 Bed confinement status; Z85.3 Personal history of malignant neoplasm of breast
CPT/HCPCS: 36415; 36600; 71045; 73560; 80048; 80053; 81001; 82550; 82803; 83605; 83735; 83880; 84100; 84484; 85025; 85610; 85730; 87040; 87804; 93005; 93970; 94640; 94660; 94664; 97039; 99291; G0378; J1650; J1940; J3490